=== PATIENT | female | born 1990 | race Asian ===

== ENCOUNTER 2024-11-20 22:18 | Emergency (ER) | payer OTHER ==
[~2024-11-20] VITALS: Ht 152.4 cm; Wt 63.5 kg
[2024-11-20 22:25] VITALS: O2SAT 98
== END 2024-11-20 22:48 | disposition left against medical advice (07) ==
LOC: ER 22:18
DX: O72.1 Other immediate postpartum hemorrhage (principal); Z53.21 Procedure and treatment not carried out due to patient leaving prior to being seen by health care provider
CPT/HCPCS: A4606; A4663